=== PATIENT | female | born 1990 | race Caucasian/White ===

== ENCOUNTER 2023-04-01 01:18 | Emergency (ER) | payer OTHER, SELFPAY ==
--- NOTE | 2023-04-01 01:24 | ED.GENADULT ---
HPI - General Adult General Chief complaint: Upper Respiratory Symptoms Stated complaint: blood in tonsils and tonsil tissue Time Seen by Provider: 04/01/23 01:24 History of Present Illness HPI narrative: 32-year-old female with history of tonsil stones presents with her in the chief complaint of tonsillar bleeding. She frequently uses a water pick to irrigate stones out of her tonsils and did so earlier tonight and noticed a small amount of bleeding and fullness in her left tonsil. She states that she also thinks that a small piece of tissue was irrigated out as well. She denies any difficulty swallowing, no trouble breathing. No external swelling or mass. She is otherwise well and free of complaint. Review of Systems Review of Systems Narrative: GENERAL: Denies chills, fatigue, malaise, fever, sweats. HEENT: See HPI RESPIRATORY: Denies dyspnea, cough, wheezing, hemoptysis, sputum. CARDIOVASCULAR: Denies chest pain, palpitations, orthopnea, edema, GASTROINTESTINAL: Denies nausea, vomiting, abdominal pain, diarrhea, constipation, melena. : Denies dysuria, frequency, incontinence, hematuria, urinary retention. MUSCULOSKELETAL: denies weakness, joint pain, or bony pain SKIN: Denies rash, skin lesions, or other NEUROLOGIC: Denies weakness, headache, numbness, change in speech, confusion, seizures, incoordination. PSYCHIATRIC: No concerning psychosocial issues. 12 point review of systems is negative except for those stated above Patient History Social History Smoking Status: Never smoker Exam Narrative Exam Narrative: GEN: AOx3 and in mild distress EYES: Pupils are equal, round, and reactive to light and accommodation. Extraoccular muscles are intact bilaterally. There is no subconjunctival hemorrhage or exudate. ENT: Airway patent, no tonsillar swelling or bleeding, no evidence of mass, no tender adenopathy CHEST: Lungs are clear to auscultation bilaterally and free of wheezes, rales, or rhonchi. Heart rate is regular rhythm, there are no murmurs, clicks, rubs, or gallops. There is no chest wall tenderness. ABD: Abdomen is soft and nontender. There is no guarding or rebound. Bowel sounds are normal in all 4 quadrants. There is no mass or organomegaly. EXT: Full painless ROM of all extremities with no loss of sensation or strength. SKIN: Warm, pink, and dry. No erythema or rash Initial Vital Signs Initial Vital Signs: Vital Signs Temperature 98.2 F 04/01/23 01:25 Pulse Rate 76 04/01/23 01:25 Respiratory Rate 18 04/01/23 01:25 Blood Pressure 113/51 L 04/01/23 01:25 Pulse Oximetry 100 04/01/23 01:25 Oxygen Delivery Method Room Air 04/01/23 01:25 Course Vital Signs Vital signs: Vital Signs - 8 hr 04/01/23 01:25 Temperature 98.2 F Pulse Rate 76 Respiratory Rate 18 Blood Pressure 113/51 L Pulse Oximetry 100 Oxygen Delivery Method Room Air Medical Decision Making MDM Narrative Medical decision making narrative: [32] year old patient presents with concern of tonsillar bleeding Primary Historian: patient Labs reviewed and interpreted by myself: Patient with very reassuring history and physical exam, no tonsillar swelling, airway compromise, no difficulty swallowing or controlling secretions, no evidence of ongoing bleeding Findings and discharge diagnosis discussed with patient/family followed by verbalization of understanding Return precautions discussed with patient/family whom verbalize understanding of diagnosis and plan Discharge Plan Departure Patient Disposition: Home Clinical Impression: Tonsillar bleed Activity Restrictions/Additional Instructions: *You have been diagnosed with [tonsillar bleed, resolved] *What to do: *Please continue to take your regular medications as directed. [ *Please follow up with Dr. Laureano at [facility]. Please call the office later this morning and let them know you were seen in the emergency department and we would like you seen in follow-up. I will electronically transmitted a copy of today's note to their office *Return to Emergency Department if you should have any new, worsening or concerning symptoms, such as [fever greater than 101 F, shaking chills, worsening pain, persistent vomiting or other bothersome symptoms] Referrals: Paul Laureano MD [Physician] - Stand Alone Forms: Patient Portal/API
[2023-04-01 01:25] VITALS: BP 113/51; PULSE 76; RESP 18; TEMP 36.8; O2SAT 100; BMI 40.8
--- NOTE | 2023-04-01 02:00 | PC.NURSE ---
throat exam deferred to DR Hicks.
== END 2023-04-01 01:40 | disposition home or self-care (01) ==
PROVIDERS: Emergency Provider Emergency Medicine
DX: J35.8 Other chronic diseases of tonsils and adenoids (principal)
CPT/HCPCS: 99281

== ENCOUNTER 2023-04-28 23:35 | Emergency (ER) | payer OTHER, SELFPAY ==
[2023-04-28 23:50] VITALS: BP 135/79; PULSE 71; RESP 18; TEMP 36.1; O2SAT 100; BMI 40.6
--- NOTE | 2023-04-29 | ED.SKABFB ---
HPI - Skin/Abscess/Foreign Bdy General Chief complaint: Skin/Abscess/Foreign Body Stated complaint: scar has rash and arriaza and smells Time Seen by Provider: 04/28/23 23:47 Source: patient Mode of arrival: Ambulatory Limitations: no limitations History of Present Illness HPI narrative: 32-year-old female who 3 months ago underwent a . She states that several weeks after the surgery she did have an opening of the left side of the wound. This did improve however over the past couple days she has noticed some redness and foul smelling areas around the scar. She has been diagnosed with a yeast infection in this area in the past and does have a prescription for nystatin cream at home but that episode seemed to improve and this is a new episode. She denies any fevers. Related Data Previous Rx's Medication Instructions Recorded nystatin 100,000 unit/gram topical 1 applic topical BID #15 grams 04/29/23 cream Review of Systems Integumentary/Breasts Skin/Breast: Reports system reviewed and no additional complaints, except as documented Patient History Social History Smoking Status: Never smoker Smoking Status: Never smoker Substance Use Type: does not use Exam Initial Vital Signs Initial Vital Signs: Vital Signs Temperature 96.9 F L 04/28/23 23:50 Pulse Rate 71 04/28/23 23:50 Respiratory Rate 18 04/28/23 23:50 Blood Pressure 135/79 04/28/23 23:50 Pulse Oximetry 100 04/28/23 23:50 Oxygen Delivery Method Room Air 04/28/23 23:50 Skin Other: scar appears well. There is no dehiscence. She does have an area just to the left of midline that has an appearance that is consistent with a yeast infection. Neuro General: patient alert, patient awake and moves all extremities Course Vital Signs Vital signs: Vital Signs - 8 hr 04/28/23 23:50 Temperature 96.9 F L Pulse Rate 71 Respiratory Rate 18 Blood Pressure 135/79 Pulse Oximetry 100 Oxygen Delivery Method Room Air MDM - Skin/Abscess/Foreign Bdy MDM Narrative Medical decision making narrative: Her physical exam is consistent with a yeast infection which appears to be topical. I have low suspicion for cellulitis. There was no signs of any wound dehiscence. No indication for any radiologic studies. Discharge Plan Departure Patient Disposition: Home Clinical Impression: Skin yeast infection Instructions: Yeast Infection-Skin Activity Restrictions/Additional Instructions: Use the nystatin cream as directed. Try to keep the area as dry as possible. You can shower like normal. Return to the emergency department for new or worsening symptoms. Prescriptions: New nystatin 100,000 unit/gram cream 1 applic topical BID Qty: 15 2RF Stand Alone Forms: Patient Portal/API
--- NOTE | 2023-04-29 00:27 | ED_ITS ---
HPI - Skin/Abscess/Foreign Bdy General Chief complaint: Skin/Abscess/Foreign Body Stated complaint: scar has rash and arriaza and smells Time Seen by Provider: 04/28/23 23:47 Source: patient Mode of arrival: Ambulatory Limitations: no limitations History of Present Illness HPI narrative: 32-year-old female. She is approximately 3 months status post . She is here for evaluation of a rash that she states is foul-smelling and somewhat tender to palpation. She is not . She did try some nystatin cream that she had at home no urinary symptoms. She denies any fevers. Related Data Previous Rx's Medication Instructions Recorded nystatin 100,000 unit/gram topical 1 applic topical BID #15 grams 04/29/23 cream Review of Systems Constitutional Constitutional: Reports system reviewed and no additional complaints, except as documented Integumentary/Breasts Skin/Breast: Reports system reviewed and no additional complaints, except as documented Neurologic Neurologic: Reports system reviewed and no additional complaints, except as documented Patient History Social History Smoking Status: Never smoker Smoking Status: Never smoker Substance Use Type: does not use Exam Initial Vital Signs Initial Vital Signs: Vital Signs Temperature 96.9 F L 04/28/23 23:50 Pulse Rate 71 04/28/23 23:50 Respiratory Rate 18 04/28/23 23:50 Blood Pressure 135/79 04/28/23 23:50 Pulse Oximetry 100 04/28/23 23:50 Oxygen Delivery Method Room Air 04/28/23 23:50 Skin Other: The surgical incision appears well. There is some surrounding erythema s pecifically on the upper aspect. There are no pustules. No vesicles. There are no crepitus. Course Vital Signs Vital signs: Vital Signs - 8 hr 04/28/23 23:50 04/29/23 00:32 Temperature 96.9 F L Pulse Rate 71 59 L Respiratory Rate 18 18 Blood Pressure 135/79 108/57 L Pulse Oximetry 100 95 Oxygen Delivery Method Room Air Room Air MDM - Skin/Abscess/Foreign Bdy MDM Narrative Medical decision making narrative: Wound appears well. There was no signs of any dehiscence. I have low suspicion for cellulitis. Her skin exam is consistent with a yeast infection. No indication for radiologic studies. Will treat with nystatin cream. She was given return precautions. She expressed understanding and agreement. Discharge Plan Departure Patient Disposition: Home Clinical Impression: Skin yeast infection Instructions: Yeast Infection-Skin Activity Restrictions/Additional Instructions: Use the nystatin cream as directed. Try to keep the area as dry as possible. You can shower like normal. Return to the emergency department for new or worsening symptoms. Prescriptions: New nystatin 100,000 unit/gram cream 1 applic topical BID Qty: 15 2RF Stand Alone Forms: Patient Portal/API
[2023-04-29 00:32] VITALS: BP 108/57; PULSE 59; RESP 18; O2SAT 95
== END 2023-04-29 00:33 | disposition home or self-care (01) ==
PROVIDERS: Emergency Provider Emergency Medicine
DX: B37.2 Candidiasis of skin and nail (principal)
CPT/HCPCS: 99281; 99283

== ENCOUNTER → 2023-09-13 13:50 | Outpatient (CLI) | payer OTHER, SELFPAY ==
[2023-09-13 14:53] LABS: Add Manual Diff / Slide Review NO; Basophils Absolute Auto 0 /uL (0-100); Basophils Percent Auto 0.4 % (0-2); Eosinophils Absolute Auto 100 /uL (0-450); Eosinophils Percent Auto 0.7 % (2-4); Hemoglobin 13.3 g/dL (12.0-16.0); Lymphocytes Absolute Auto 1600 /uL (1100-4500); Lymphocytes Percent Auto 19.5 % (25-40); Mean Corpuscular HGB Conc 33.3 % (30-36); Mean Corpuscular Hemoglobin 28.5 PG (26-34); Mean Corpuscular Volume 85.6 fL (80-100); Monocytes Absolute Auto 600 /uL (0-900); Monocytes Percent Auto 6.7 % (3-14); Neutrophils Absolute Auto 6100 /uL (1500-7000); Neutrophils Percent Auto 72.7 % (50-75); Platelet Count 286 X10^3/uL (150-400); Red Blood Cell Count 4.67 X10^6/uL (4.0-5.2); Red Cell Distribution Width 13.5 % (11.6-14.8); White Blood Cell Count 8.4 X10^3/uL (4.5-11.0)
[2023-09-13 15:15] LABS: INR 1.1 (0.9-1.3)
== END ==
PROVIDERS: PCP Family Medicine; Referring Provider Physician Assistant; Visit Provider Physician Assistant
DX: T14.8XXA Other injury of unspecified body region, initial encounter (principal)
CPT/HCPCS: 36415; 85025; 85610

== ENCOUNTER 2023-12-26 07:11 | Day surgery (SDC) | payer OTHER, SELFPAY ==
--- NOTE | 2023-12-26 | PATH_ITS ---
[facility] Accession Number: [id number] No. of containers..03 Tissue . 01 Material submitted: . PART A: stomach - ANTRUM PART B: anal canal - ENDOETANAL POLYPS PART C: esophagus - MID-ESOPHAGEAL BIOPSIES . 01 Diagnosis: Part A: ANTRUM: Gastric mucosa with mild chronic inflammation. No Helicobacter organisms identified. No intestinal metaplasia, dysplasia, or malignancy identified. . Part B: ENDOETANAL POLYPS: Enteric type mucosa with reactive foveolar metaplasia and reactive hyperplastic changes. No dysplasia or malignancy identified. See comment. . Specimen Comments: Calls were placed to the office of Dr. Chahal to clarify the site designation for part B. The diagnosis corresponds to the histologic features seen under microscopic examination. . Part C: MID-ESOPHAGEAL BIOPSIES: Squamous mucosa with no diagnostic alterations. No evidence of eosinophilic esophagitis. [facility] 01/03/2024 1120 Local . 01 Electronically signed: . Dillon Delatorre MD, Pathologist NPI- [id number] . 01 Gross description: . A. Received in formalin with two patient identifiers and antrum biopsy, is a single charles soft tissue fragment, 0.4 cm in greatest dimension. Submitted entirely in A1. . B. Received in formalin with two patient identifiers and endoetanal polyps, are two charles soft tissue fragments, 0.4 to 0.8 cm in greatest dimension. Submitted entirely in B1. . C. Received in formalin with two patient identifiers and mid esophageal biopsy, is a single charles soft tissue fragment, 0.3 cm in greatest dimension. Submitted entirely in C1. ([id number]) /MRV 01/03/2024 1120 Local . 01 Microscopic: . Part A: ANTRUM: An immunohistochemical stain was performed to evaluate for Helicobacter organisms and is negative. The control stains appropriately. * This test was developed and its performance characteristics determined by [facility]. It has not been cleared or approved by the U.S. Food and Drug Administration. The FDA has determined that such clearance or approval is not necessary. This test is used for clinical purposes. It should not be regarded as investigational or for research. . 01 Pathologist provided ICD-10: K21.9, K29.50, K63.89 . 01 CPT . 524486, 630875, 777588, F37883 Specimen Comment: A courtesy copy of this report has been sent to [phone] Performed at: [address] [address], [place], [place] [id number] MD Dillon Delatorre MD Phone: [phone]
[2023-12-26 07:32] VITALS: BP 107/61; PULSE 65; RESP 16; TEMP 36.1; O2SAT 100
--- NOTE | 2023-12-26 07:52 | PM.HP.1 ---
History of Present Illness History of Present Illness Date Patient Seen: 12/26/23 Time Patient Seen: 07:52 Chief complaint: [facility] [place] Narrative: Here for EGD and colonoscopy. I reviewed my recent office note. No changes with the exception of the patient Denying any major problems with dysphagia at this time. She takes no anti-reflux therapy. She controls her reflux with diet. The last blood per rectum was this morning. She denies chronic diarrhea. She reports colon polyps when she was 4 years old. [facility] Medical History Anemia Colon polyps Right ankle pain History of multiple miscarriages Surgical History History of Social History Smoking Status: Never smoker alcohol intake: never Meds Home Medications and Allergies Home Medications Medication Instructions Recorded Confirmed Type mv-min [id number] PO 06/30/23 11/25/23 History [Alive Daily Support ] cholecalciferol (vitamin D3) 25 25 mcg PO DAILY 09/13/23 12/26/23 History mcg (1,000 unit) capsule Allergies Allergy/AdvReac Type Severity Reaction Status Date / Time No Known Drug Allergies Allergy Verified 12/26/23 07:32 Review of Systems Review of Systems ROS: Yes All systems reviewed with the patient and are negative except as otherwise documented Exam Vital Signs (past 8 hours): - 12/26/23 07:32 Temperature 97 F L Pulse Rate 65 Respiratory Rate 16 Blood Pressure 107/61 Pulse Oximetry 100 Oxygen Delivery Method Room Air Oxygen Delivery Method Room Air Const General: cooperative HENMT Head: normal to inspection Eyes General: appearance normal, both eyes and all related structures Neck Neck: normal visual inspection Chest Chest: normal inspection of the chest Resp Effort & Inspection: normal respiratory effort Cardio Rate: regular rate GI Inspection: normal to inspection Skin General: no rashes or lesions noted Neuro General: patient alert and patient awake Extrem General: normal to inspection and no pedal edema Psych Appearance: grossly normal Assessment & Plan Assessment & Plan narrative: 33-year-old female with a history of chronic reflux, remote dysphagia, remote colon polyps, and intermittent rectal bleeding. EGD and colonoscopy are pursued today.
--- NOTE | 2023-12-26 07:54 | PM.PREOP ---
Pre-operative Note Interval Note History & Physical reviewed/Exam performed by Physician: Yes Changes to H&P: Yes ASA Class (for procedural sedation): III
--- NOTE | 2023-12-26 08:40 | P.OP.EGD&C_ITS ---
Operative Date/Time/Diagnoses Date of procedure: 12/26/23 Time of procedure: 08:40 Pre-op diagnosis: GERD, remote dysphagia, history of colon polyps, rectal bleeding Post-op diagnosis: same Procedure & Clinicians Study performed: EGD with biopsy and cold snare polypectomy plus colonoscopy. Same procedure as scheduled: Yes Indications: GERD, remote dysphagia, history of colon polyps, rectal bleeding Surgeon: Aba Chahal Procedure Notes SCOAP/Timeout: Done Procedure in detail: After the risks and benefits were explained, written and verbal informed consent was obtained. The patient was brought into the procedure room and placed into the left lateral decubitus position. Please see anesthesia notes for sedation details. The scope was introduced into the mouth through the bite block and advanced under direct visualization to the 2nd portion of the duodenum. The scope was slowly withdrawn carefully examining the mucosa for any defects or lesions. Retroflexed views were accomplished in the stomach. The stomach was decompressed, the scope was then removed from the patient who tolerated the procedure well. The patient was then turned around. A digital rectal examination was accomplished. Grade 3 to grade 4 nonbleeding nonthrombosed hemorrhoids were noted. The scope was introduced into the rectum and advanced to the cecum as identified by the appendiceal orifice and ileocecal valve. The terminal ileum was interrogated. The scope was then slowly withdrawn to carefully examine the mucosa for any defects or lesions. Multiple direct views were made through the dentate line for exclusion of pathology. The colon was decompressed. The scope was removed from the patient who tolerated the procedure well. Pediatric colonoscope Bowel prep excellent Scope withdrawal time: 8 minutes Sedation minutes: 38 Complications: none Impression: 1. Duodenal: There were 2 approximately 5-6 mm sessile polyps in the 2nd portion of the duodenal removed with cold snare. The more proximal of these 2 polyps had to be excised by way of piecemeal polypectomy as the 1st excision left small fragment that needed a 2nd excision. No additional duodenal pathology was appreciated. 2. Stomach: Minimal gastropathy was appreciated and therefore biopsies were taken from the antrum for exclusion of H pylori or other pathology. No ulcers no mass lesions and no outlet obstruction. Retroflexed views of the LES were remarkable. No gross gastric lesions. 3. Esophagus: The squamocolumnar junction correlated with the top of the gastric folds. GEJ was at approximately 38 cm from the incisors. No stricture was evident. No stenosis. No esophagitis. I elected to take midesophageal bi opsies for exclusion of eosinophilic infiltration. No gross lesions in the esophagus identified. 4. Terminal ileum: This was visually normal. 5. Colon: No evidence of proctitis. No colitis. No significant polyps identified throughout the entire colon and rectum. The patient had evidence of grade 3-4 hemorrhoids. Endoscopic diagnosis 1. Small duodenal polyps 2. Mild gastropathy 3. Otherwise visually unremarkable EGD 4. Grade 3 to grade 4 hemorrhoids 5. Otherwise visually unremarkable colonoscopy and terminal ileoscopy. Post-procedure Plan for aftercare: 1. Await histology. 2. Continue current anti-reflux approach. 3. Surveillance upper endoscopy will be considered contingent on pathology results. 4. Repeat colonoscopy for colon cancer screening at age 47. 5. Intermittent warm Epsom salt baths to reduce hemorrhoidal engorgement. Consider fiber supplementation for soft regular bowel movements. Disposition: PACU
[2023-12-26 08:46] VITALS: BP 111/67; PULSE 59; RESP 29; TEMP 36.7; O2SAT 97
[2023-12-26 08:50] VITALS: BP 110/68; PULSE 58; RESP 17; O2SAT 96
[2023-12-26 08:56] VITALS: BP 109/68; PULSE 55; RESP 12; TEMP 36.5; O2SAT 99
== END 2023-12-26 09:53 | disposition home or self-care (01) ==
PROVIDERS: PCP Family Medicine; Referring Provider Internal Medicine Gastroenterology; Visit Provider Internal Medicine Gastroenterology
PROC: 0DJ08ZZ Inspection of Upper Intestinal Tract, Via Natural or Artificial Opening Endoscopic (ICD-10-PCS; CPT 43251; principal; 2023-12-26 08:00)
PROC: 0DJD8ZZ Inspection of Lower Intestinal Tract, Via Natural or Artificial Opening Endoscopic (ICD-10-PCS; CPT 45378; 2023-12-26 08:00)
DX: K62.5 Hemorrhage of anus and rectum (principal); Z86.010 Personal history of colon polyps; K21.9 Gastro-esophageal reflux disease without esophagitis; K31.7 Polyp of stomach and duodenum; K31.9 Disease of stomach and duodenum, unspecified; K64.2 Third degree hemorrhoids; K29.50 Unspecified chronic gastritis without bleeding; K62.1 Rectal polyp
CPT/HCPCS: 43251; 45378; 43239; J2704